=== PATIENT | female | born 1965 ===

== ENCOUNTER 2024-03-23 07:45 | Inpatient (IN) | payer OTHER ==
[2024-03-23 09:11] LABS: HEMATOCRIT 34.6 % (36.0-45.00); HEMOGLOBIN 11.4 g/dL (12.0-15.00); MEAN CELL VOLUME 76.2 fL (80.00-100.00); MEAN CORPUSCULAR HEMOGLOBIN 25.1 pg (27.00-32.0); MEAN CORPUSCULAR HGB CONC 32.9 g/dl (32.0-36.0); PLATELET COUNT 177 K/uL (150-450); RED BLOOD COUNT 4.54 M/uL (4.00-6.00); RED CELL DISTRIBUTION WIDTH 17.4 % (11.5-14.5)
[2024-03-23] MEDS ORDERED: ZESTRIL10 M1 (09:11)
[2024-03-23] MEDS ORDERED: PROAIR ALBUTEROL (09:11)
[2024-03-23 09:12] LABS: URINE APPEARANCE Cloudy; URINE BILIRRUBIN Negative (NEGATIVE); URINE BLOOD Negative; URINE COLOR Yellow; URINE GLUCOSE Negative (NEGATIVE); URINE KETONE Trace (NEGATIVE); URINE LEUKOCYTE Negative; URINE NITRATE Negative; URINE PROTEIN Negative (NEGATIVE)
[2024-03-23] MEDS ORDERED: SIMVASTATIN 40MG (09:12)
[2024-03-23] MEDS ORDERED: LORATADINE10 M1 (09:12)
[2024-03-23] MEDS ORDERED: OMEPRAZOLE-BIC1 EAC1 (09:13)
[2024-03-23] MEDS ORDERED: LEVOTHYROXINE25 MCG (09:13)
[2024-03-23 09:16] LABS: URINE CAST 2.44 uL (0.0-1.40); URINE EPITHELIAL CELLS 64.1 uL (0.0-38.8); URINE RBC 21.2 uL (0.0-20.8); URINE WBC 101.2 uL (0.0-23.2)
[2024-03-23 09:31] LABS: URINE BACTERIA > 9821.5 uL (0.0-1933)
[2024-03-23 09:57] LABS: INR 0.94; PROTHROMBIN TIME 10.3 SECONDS (9.0-11.5)
[2024-03-23 10:29] LABS: ALBUMIN 3.9 gm/dL (3.4-5.0); BILIRUBIN TOTAL 0.63 mg/dL (0.3-1.2); CALCIUM 9.4 mg/dL (8.5-10.1); CREATININE SERUM 0.84 mg/dL (0.55-1.02); GFR 69.16; GLOBULINA 3.4 G/DL (2.4-3.5); POTASSIUM 4.75 mEq/L (3.5-5.1); TOTAL PROTEIN 7.3 gm/dL (6.4-8.2)
[2024-03-29] MEDS ORDERED: CEFOXITIN SODIUM 2,000 MG VIAL IV ONE (07:12)
[2024-03-29] MEDS ORDERED: SUGAMMADEX SODIUM 200 MG/2 ML VIAL IV ONE (11:39)
[2024-03-29] MEDS ORDERED: MORPHINE SULFATE 4 MG/ML VIAL IV ONE ×2 (12:40→13:10)
[2024-03-29] MEDS ORDERED: MORPHINE SULFATE 4 MG/ML CARTRIDGE IV SCH (13:00)
[2024-03-29] MEDS ORDERED: CEFOXITIN SODIUM 1,000 MG in 0.9 % SODIUM CHLORIDE 50 ML IV SCH (17:00)
[2024-03-29] MEDS ORDERED: FAMOTIDINE/PF 20 MG/2 ML VIAL IV SCH (21:00)
[2024-03-30] MEDS ORDERED: LEVOTHYROXINE SODIUM 25 MCG TABLET PO SCH (06:00)
[2024-03-30] MEDS ORDERED: LISINOPRIL 10 MG TABLET PO SCH (09:00)
== END 2024-03-31 10:56 | disposition home or self-care (01) | DRG 331 ==
LOC: SURG 03-29 05:15 → O/R 03-29 05:15 → SURH 03-29 07:45 → SURG 03-29 11:46
PROVIDERS: ADMIT Surgery; ATTEND Surgery
PROC: 0DBP4ZZ Excision of Rectum, Percutaneous Endoscopic Approach (ICD-10-PCS; 2024-03-29)
PROC: 8E0W4CZ Robotic Assisted Procedure of Trunk Region, Percutaneous Endoscopic Approach (ICD-10-PCS; 2024-03-29)
PROC: 0DJD8ZZ Inspection of Lower Intestinal Tract, Via Natural or Artificial Opening Endoscopic (ICD-10-PCS; 2024-03-29)
PROC: 0DTN4ZZ Resection of Sigmoid Colon, Percutaneous Endoscopic Approach (ICD-10-PCS; principal; 2024-03-29 10:00)
DX: C19 Malignant neoplasm of rectosigmoid junction (principal); R59.0 Localized enlarged lymph nodes
CPT/HCPCS: 44207; 44213; S2900